=== PATIENT | female | born 1960 | race Caucasian/White ===

== ENCOUNTER 2023-11-29 10:09 | Emergency (ER) | payer BC ==
[2023-11-29] MEDS: predniSONE 20 MG Tab PO ONE (14:07)
[2023-11-29] MEDS: Take Home: Clindamycin HCl 150 MG, 12 Cap Pack PO ONE (14:07)
== END 2023-11-29 14:10 | disposition home or self-care (01) ==
LOC: DL.ED 10:09
DX: L03.211 Cellulitis of face (principal); Z91.040 Latex allergy status; Z79.899 Other long term (current) drug therapy
CPT/HCPCS: 99283; A9270-GY; J7512

== ENCOUNTER 2025-02-01 09:41 | Day surgery (SDC) | payer MEDICARE, BC ==
[~2025-02-01 09:41] MED LIST: Dexamethasone 4 MG/ML SDV ONE; Proparacaine 0.5% Ophth Soln 15 ML Bottle ONE
[2025-02-01] MEDS: Proparacaine 0.5% Ophth Soln 15 ML Bottle EYELF ONE ×2 (10:13→10:40)
[2025-02-01] MEDS: Moxifloxacin 0.5% Ophth Soln 3 ML Bottle EYELF ONE (10:13)
[2025-02-01] MEDS ORDERED: VANCOmycin 6 MG in Sodium Chloride 0.9% 100 ML IV ONE (10:15)
[2025-02-01] MEDS ORDERED: Acetaminophen 325 MG Tab PO PRN (10:15)
[2025-02-01] MEDS ORDERED: Acetaminophen/Codeine 300-30 MG Tab PO PRN (10:15)
[2025-02-01] MEDS ORDERED: Ondansetron 4 MG/2 ML SDV IVPUSH PRN (10:15)
[2025-02-01] MEDS: Povidone-Iodine 5% Sterile Ophth Soln 30 ML Bottle EYELF ONE ×2 (10:15→10:41)
[2025-02-01] MEDS ORDERED: Lidocaine 1% 30 ML SDV INJECT ONE (10:15)
[2025-02-01] MEDS: Tropicamide 1% Ophth Soln 15 ML Bottle EYELF ONE (10:15)
[2025-02-01] MEDS ORDERED: VANCOmycin 500 MG SDV EYELF ONE (10:15)
[2025-02-01] MEDS: Phenylephrine 10% Ophth Soln 5 ML Bot EYELF PRN (10:16)
[2025-02-01] MEDS: Timolol Maleate 0.5% Ophth Soln 5 ML Bottle EYELF ONE (10:16)
[2025-02-01] MEDS: Cataract Ophth Solution EYELF ONE (10:19)
[2025-02-01] MEDS: Diclofenac Sodium 0.1% Ophth Soln 5 ML Bottle EYELF ONE (10:41)
[2025-02-01] MEDS: Dexamethasone/Neomycin/Polymyxin B Ophth Oint 3.5 GM Tube EYELF ONE (10:42)
[2025-02-01] MEDS: Lidocaine 1% 30 ML SDV INJECT ONE (10:42)
[2025-02-01] MEDS: VANCOmycin 500 MG SDV EYELF ONE (10:43)
== END 2025-02-01 11:23 | disposition home or self-care (01) ==
LOC: DL.SDS 09:41
PROVIDERS: ATTEND Ophthalmology
DX: H25.812 Combined forms of age-related cataract, left eye (principal); Z91.040 Latex allergy status
CPT/HCPCS: A9270-GY; J2003; J3370; J3490

== ENCOUNTER 2025-03-01 07:48 | Day surgery (SDC) | payer MEDICARE, BC ==
[2025-03-01] MEDS ORDERED: Midazolam 1 MG/ML 2 ML SDV IV ONE (07:49)
[2025-03-01] MEDS ORDERED: Dexamethasone 4 MG/ML SDV IV ONE (07:49)
[2025-03-01] MEDS ORDERED: Sodium Chloride 0.9% 10 ML Syringe IV ONE (07:49)
[2025-03-01] MEDS: Moxifloxacin 0.5% Ophth Soln 3 ML Bottle EYERT ONE (08:32)
[2025-03-01] MEDS: Povidone-Iodine 5% Sterile Ophth Soln 30 ML Bottle EYERT ONE ×2 (08:34→10:20)
[2025-03-01] MEDS: Phenylephrine 10% Ophth Soln 5 ML Bot EYERT ONE (08:34)
[2025-03-01] MEDS: Timolol Maleate 0.5% Ophth Soln 5 ML Bottle EYERT ONE (08:36)
[2025-03-01] MEDS: Cataract Ophth Solution EYERT ONE (08:36)
[2025-03-01] MEDS ORDERED: Ondansetron 4 MG/2 ML SDV IVPUSH PRN (09:30)
[2025-03-01] MEDS: Dexamethasone/Neomycin/Polymyxin B Ophth Oint 3.5 GM Tube EYERT ONE (10:33)
[2025-03-01] MEDS: Apraclonidine 0.5% Ophth Soln 5 ML Bot EYERT ONE (10:33)
[2025-03-01] MEDS: Diclofenac Sodium 0.1% Ophth Soln 5 ML Bottle EYERT ONE (10:33)
== END 2025-03-01 11:08 | disposition home or self-care (01) ==
LOC: DL.SDS 07:48
PROVIDERS: ATTEND Ophthalmology
DX: H25.811 Combined forms of age-related cataract, right eye (principal)
CPT/HCPCS: 00142; 66984; A9270; J1100; J2003; J2250; J3373; V2632; J3490